=== PATIENT | male | born 1935 | race Caucasian/White ===

== ENCOUNTER 2017-11-24 15:30 | Emergency (ER) | payer MEDICARE, BC ==
[~2017-11-24] VITALS: Ht 167.6 cm; Wt 63.5 kg
[~2017-11-24 15:30] MED LIST: ACYC400 PO; ALBU3IS INH; ALBU90OI61 INH; ALLO300; ALLOPURINOL; AMIL5 PO; AMLO10 PO; AMLO5 PO; ATOR20 PO; ATOR40TA; ATOR40TA PO; BIOTIN; Bacid1 EACH PO; CALCAVITD PO; CALPHO600 PO; CEPH500 PO; CHOL10002 PO; CHOLECALCIFEROL; CITA20 PO; CITRACAL; CITRACAL + BON1 EACH PO; CLON.1; CLON.5 PO; DUONEB 0.5 MG-33 ML IH; ERGO400 PO; ESCI10; ESCI10 PO; FISH1000; FISH1000 PO; FURO20 PO; HIBICLENS; HYDACE5 PO; HYOS.125; Hair, Skin & N1 EACH PO; IPRA.03NI; LEVFLO500 PO; LEVO750 PO; LOSA25 PO; LOSA50 PO; MAGGLU250 PO; MAGNESIUM GLUC PO; MAGNESIUM GLUCONATE PO; MEGE40SU; METO25ER PO; METO50ER; METR500 PO; MULTI VITAMIN1 EACH PO; MULTIVITAMINS; MULVITA PO; MULVITB; MULVITMIND PO; Mucinex100 MG PO; NEPHROCAP; NISO10ER; OMEP10ER PO; OMEP20ER PO; OMEP40CA12 PO; OXYACE7.5T PO; POTA10T PO; POTCHL10ER PO; POTCHL20ER; POTCHL20ER PO; PRED10 PO; PRED5 PO; PROACE100 PO; RANI150; RXPROACE PO; SACC250C PO; SEVE800; SIMV10 PO; SIMV40 PO; SPIRIVA HANDIHALER INH; SULTRIDS PO; TACR1 PO; TIOT18; TIOT18 IH; TIOT18 PO; ZINC50TA2; [UNRECOGNIZED DRUG - MIXTURE] PO; [UNRECOGNIZED DRUG - OTHER]
== END 2017-11-24 17:00 | disposition home or self-care (01) ==
LOC: ER 15:30
DX: S09.90XA Unspecified injury of head, initial encounter (principal); I10 Essential (primary) hypertension; J44.9 Chronic obstructive pulmonary disease, unspecified; Z88.6 Allergy status to analgesic agent; Z79.899 Other long term (current) drug therapy; Z79.52 Long term (current) use of systemic steroids; W22.8XXA Striking against or struck by other objects, initial encounter
CPT/HCPCS: 99283

== ENCOUNTER 2018-11-05 14:28 | Emergency (ER) | payer MEDICARE, BC ==
[~2018-11-05] VITALS: Ht 160 cm; Wt 69.0 kg
[2018-11-05 15:16] LABS: BASOPHILS ABSOLUTE AUTO 0.03 K/mm3 (0.00-0.23); BASOPHILS PERCENT AUTO 0 % (0-2); EOSINOPHILS ABSOLUTE AUTO 0.06 K/mm3 (0.00-0.68); EOSINOPHILS PERCENT AUTO 1 % (0-6); Hematocrit 43.4 % (37.0-53.0); Hemoglobin 13.6 g/dL (13.5-17.5); IMMATURE GRAN ABSOLUTE AUTO 0.05 K/mm3 (0.00-0.10); IMMATURE GRAN PERCENT AUTO 0 % (0-1); LYMPHOCYTES ABSOLUTE AUTO 0.65 K/mm3 (0.84-5.20); LYMPHOCYTES PERCENT AUTO 5 % (21-46); MONOCYTES ABSOLUTE AUTO 1.02 K/mm3 (0.16-1.47); MONOCYTES PERCENT AUTO 8 % (4-13); Mean Corpuscular HGB 31.2 pg (26.0-34.0); Mean Corpuscular HGB Conc 31.3 g/dL (31.5-36.5); Mean Corpuscular Volume 100 fL (80-100); Mean Platelet Volume 10.7 fL (9.1-12.4); NEUTROPHILS ABSOLUTE AUTO 11.47 K/mm3 (1.96-9.15); NEUTROPHILS PERCENT AUTO 86 % (41-73); Platelet Count 174 K/mm3 (150-400); RDW Coefficient Variation 14.1 % (11.7-14.2); RDW Standard Deviation 51.4 fL (35.1-46.3); Red Blood Cell Count 4.36 M/mm3 (4.30-5.90); White Blood Cell Count 13.28 K/mm3 (4.00-11.30)
[2018-11-05 15:21] LABS: Alanine Aminotransfer (ALT/SGP 24 U/L (12-78); Albumin, Blood 3.5 g/dL (3.4-5.0); Albumin/Globulin Ratio 1.2 (0.8-1.8); Alk Phos 67 U/L (50-136); Anion Gap 6 mmol/L (6-16); Aspartate Aminotrans (AST/SGOT 5 U/L (12-37); Blood Urea Nitrogen 21 mg/dL (8-24); Bun/Creatinine Ratio 29.2 (12.0-20.0); CO2, Blood 31 mmol/L (21-32); Calcium, Blood 9.4 mg/dL (8.5-10.1); Chloride, Blood 107 mmol/L (98-108); Creatinine, Blood 0.72 mg/dL (0.60-1.20); Globulin, Blood 2.9 g/dL (2.2-4.0); Glomerular Filtration Rate >60 (60-); Glucose, Blood 106 mg/dL (70-99); Potassium, Blood 4.3 mmol/L (3.5-5.5); Sodium, Blood 144 mmol/L (136-145); Total Protein, Blood 6.4 g/dL (6.4-8.2)
== END 2018-11-05 16:09 | disposition home or self-care (01) ==
LOC: ER 14:28
PROVIDERS: Physician Assistant
DX: S51.851A Open bite of right forearm, initial encounter (principal); I10 Essential (primary) hypertension; J44.9 Chronic obstructive pulmonary disease, unspecified; Z88.6 Allergy status to analgesic agent; Z79.899 Other long term (current) drug therapy; Z85.528 Personal history of other malignant neoplasm of kidney; Z94.0 Kidney transplant status; W55.01XA Bitten by cat, initial encounter
CPT/HCPCS: 36415; 80053; 85025; 96365; 99283-25; J0295; J2543

== ENCOUNTER → 2018-11-05 | Outpatient (CLI) | payer MEDICARE, BC ==
[2018-11-05 08:57] LABS: Appearance, Urine Clear (Clear); Bilirubin, Urine Neg (Neg); Blood, Urine Neg (Neg); Color, Urine Yellow (P-Yellow); Glucose Qualitative, Urine Neg (Neg); Ketones, Urine Neg (Neg); Leukocyte Esterase, Urine 1+ (Neg); Nitrite, Urine Neg (Neg); Protein, Urine Neg (Neg); Urobilinogen, Urine NORM (Normal)
[2018-11-05 09:21] LABS: Red Blood Cells, Urine 0-2 /hpf (0-2); White Blood Cells, Urine 0-2 /hpf (0-5)
[2018-11-05 09:22] LABS: Bacteria Rare /hpf; Calcium Oxalate Crystals Many /hpf; Mucus Mod (0-Heavy); Squamous Epithelial Cells Not Seen /hpf (Few)
== END ==
LOC: LAB 08:17 → LAB SHORT 08:17
PROVIDERS: Nurse Practitioner Family
DX: Z48.22 Encounter for aftercare following kidney transplant (principal); Z79.899 Other long term (current) drug therapy
CPT/HCPCS: 81001

== ENCOUNTER → 2019-05-17 | Outpatient (CLI) | payer MEDICARE, BC ==
[~2019-05-17] MED LIST changes: +ASPI81CH; +FINA5; +HYDR1TAB94; +SINEMET 25-1001 EACH; +TAMS.4ER
[2019-05-17 13:33] LABS: Source, Urine Clean Catch
[2019-05-17 17:12] LABS: Bilirubin, Urine Neg (Neg); Blood, Urine Neg (Neg); Glucose Qualitative, Urine Neg (Neg); Ketones, Urine Neg (Neg); Leukocyte Esterase, Urine Neg (Neg); Nitrite, Urine Neg (Neg); Protein, Urine Neg (Neg); Urobilinogen, Urine NORM (Normal)
[2019-05-17 17:20] LABS: Appearance, Urine Clear (Clear); Color, Urine Yellow (P-Yellow)
[2019-05-17 17:21] LABS: Red Blood Cells, Urine 0-2 /hpf (0-2); White Blood Cells, Urine 0-2 /hpf (0-5)
[2019-05-17 17:22] LABS: Bacteria Few /hpf; Squamous Epithelial Cells Not Seen /hpf (Few)
== END ==
LOC: EDSTATUS 09:41 → OLS 13:29 → LAB SHORT 13:29
PROVIDERS: Nurse Practitioner Family
DX: Z48.22 Encounter for aftercare following kidney transplant (principal); Z79.899 Other long term (current) drug therapy
CPT/HCPCS: 81001; 81003; 87086

== ENCOUNTER 2019-08-19 13:44 | Emergency (ER) | payer MEDICARE, BC ==
[~2019-08-19] VITALS: Ht 162.6 cm; Wt 66.7 kg
[2019-08-19] MEDS ORDERED: CEPH500 PO (17:07)
== END 2019-08-19 17:36 | disposition home or self-care (01) ==
LOC: ER 13:44
DX: S01.312A Laceration without foreign body of left ear, initial encounter (principal); I10 Essential (primary) hypertension; J44.9 Chronic obstructive pulmonary disease, unspecified; Z79.899 Other long term (current) drug therapy; W18.2XXA Fall in (into) shower or empty bathtub, initial encounter
CPT/HCPCS: 12011; 70450; 99283-25; A9270-GY

== ENCOUNTER → 2019-09-16 | Outpatient (CLI) | payer MEDICARE, BC ==
[2019-09-16 13:13] LABS: Bilirubin, Urine Neg (Neg); Blood, Urine Neg (Neg); Glucose Qualitative, Urine Neg (Neg); Ketones, Urine Neg (Neg); Leukocyte Esterase, Urine Neg (Neg); Nitrite, Urine Neg (Neg); Protein, Urine Neg (Neg); Specific Gravity, Urine 1.015 (1.003-1.022); Urobilinogen, Urine NORM (Normal); pH, Urine 6.5 (5.0-8.0)
[2019-09-16 13:41] LABS: Appearance, Urine Clear (Clear); Color, Urine Yellow (P-Yellow)
== END ==
LOC: OLS 12:11 → LAB SHORT 12:11
PROVIDERS: Internal Medicine Nephrology
DX: Z48.22 Encounter for aftercare following kidney transplant (principal); R82.90 Unspecified abnormal findings in urine; Z79.899 Other long term (current) drug therapy
CPT/HCPCS: 81003